=== PATIENT | male | born 1965 | race Caucasian/White ===

== ENCOUNTER 2025-04-26 15:06 | Emergency (ER) | payer SELFPAY ==
[2025-04-26 15:14] VITALS: BP 154/96; PULSE 58; RESP 18; TEMP 36.8; O2SAT 98
[2025-04-26] MEDS: lidocaine-epi 2% 20 mL INJ INJECTION (15:31)
--- NOTE | 2025-04-26 15:58 | ED_ITS ---
Documented by User: [email or web address] Salazar 04/26/25 16:01 HPI - Wound/Laceration General: Chief Complaint: Wound/Laceration Stated Complaint: Lt hand lac Time Seen by Provider: 04/26/25 15:19 Source: patient Mode of arrival: ambulatory Limitations: no limitations History of Present Illness: Patient is a 60-year-old male who presents to the emergency department for lacerating left hand after sliding a crossbow. States that the laceration is between his left thumb and index finger, and he has not gotten the bleeding stopped. He does not use blood thinner. Direct pressure applied at this time and noted to be soaking through gauze. No distal neurovascular symptoms reported. Pain minimal, he did take 600 mg ibuprofen prior to coming in. He notes that his tetanus is not up-to-date. Onset (ago): minute(s) Extremity Location: Left: hand Patient tetanus UTD: No Context: accidental Associated symptoms: Denies chills, fever(s), nausea or vomiting Treatments prior to arrival: bandage Related Data Previous Rx's ?Medication ?Instructions ?Recorded cephalexin 500 mg capsule 500 mg PO Q6H 5 days #20 cap s 04/26/25 Allergies Allergy/AdvReac Type Severity Reaction Status Date / Time No Known Allergies Allergy Verified 04/26/25 15:18 Review of Systems General: Reports: 10 or more systems reviewed and unremarkable except in HPI and below Const: Denies: fever(s) or chills Card: Denies: chest pain Resp: Denies: dyspnea GI: Denies: abdominal pain, nausea, vomiting or diarrhea Musc: Denies: extremity pain or joint pain Skin/Breast: Reports: new lesions (Laceration left hand); Denies: rash, skin pain or skin tenderness Neuro: Denies: headache(s) Physical Exam Const: COMMON NORMALS: no acute distress, average body habitus, patient oriented x3, no limitations, healthy appearing, alert and well nourished HENMT: COMMON NORMALS: normocephalic and atraumatic HEAD & SCALP: normocephalic and atraumatic Neck/C-Spine: COMMON NORMALS: full ROM, no lymphadenopathy, supple and no meningeal signs Extremity: COMMON NORMALS: full ROM and capillary refill normal Neuro: COMMON NORMALS: patient oriented x3, moves all extremities, no focal motor deficits and no sensory deficits noted SENSORIUM/ORIENTATION: Yes alert MENINGEAL SIGNS: Yes no meningeal signs OTHER: Normal neurovascular exam of the left hand Skin: COMMON NORMALS: turgor normal NARRATIVE SKIN EXAM: Actively bleeding flap laceration measuring approximately 5 cm to the dorsum of the left hand, between the index and thumb. This does extend into a skin tear. No obvious foreign body or contamination. GENERAL SKIN EXAM: turgor normal Procedures Laceration Laceration 1: Site: hand Side (If applicable): left Size (cm): 5 Description: flap, clean and other (Actively bleeding, associated with skin tear) Depth: simple, single layer Local Anesthetic: lidocaine 2% and with epi Amount of anesthesia used (mL): 8 Pre-repair: wound explored, irrigated extensively and deep structures intact Skin layer closed with: other (Prolene) Size (cm): 4-0 Number of sutures: 9 Technique: simple, interrupted and other (1 [id number] suture for ligation) Course Vital Signs: Vital signs: Vital Signs Temperature 98.2 F 04/26/25 15:14 Pulse Rate 58 L 04/26/25 15:14 Respiratory Rate 18 04/26/25 15:14 Blood Pressure 154/96 04/26/25 15:14 Pulse Oximetry 98 04/26/25 15:14 Oxygen Delivery Me thod Room Air 04/26/25 15:14 MDM - Wound/Laceration Medical Decision Making Patient presenting with actively bleeding laceration to left hand after injury when sliding in a crossbow. His tetanus is updated today. There is active bleeding at time of examination, offending artery is identified after irrigation and direct pressure, and a [id number] suture is placed to help this. Also was administered lidocaine with epinephrine. Regardless the bleeding is stopped, and the rest of the laceration is repaired, please see the procedure note. For the extent of this nature will start on prophylactic Keflex. There is no foreign body or contamination, neurovascular exam is intact on exam. Neurovascular exam also intact post procedure. He will be allowed discharge home with proper wound care discussed, he is dressed in sterile dressing. No radiology studies performed this visit Discharge Plan Discharge Patient Disposition: Home Clinical Impression: Laceration of hand, left Qualifiers: Encounter type: initial encounter Foreign body presence: without foreign body Qualified Code(s): S61.412A - Laceration without foreign body of left hand, initial encounter Condition: Stable Prescriptions: New cephalexin 500 mg capsule 500 mg PO Q6H 5 Days Qty: 20 0RF Discharge Orders: Discharge ED (Routine); Ordered 04/26/25 Ordered By: Hima Nagy Patient Instructions: Patient Portal & Sharan Instructions Activity Restrictions/Additional Instructions: Hand Laceration Discharge Wound Care Instructions: - Your left hand laceration was closed with nine sutures after bleeding was controlled. - Keep the wound clean and covered with an occlusive dressing (such as a bandage or gauze with ointment) to promote healing and reduce infection risk. - You may gently wash the area with clean tap water or saline after the first 24 hours. Avoid scrubbing. Pat dry and reapply a clean dressing. - Change the dressing daily or if it becomes wet or dirty. Do not apply topical antibiotics unless directed. - It is safe to get the wound wet after the first 24-48 hours. Suture Removal: - Sutures in the hand should be removed in 10-14 days to minimize scarring and reduce infection risk. Please schedule a follow-up appointment for suture removal within this timeframe. Tetanus Vaccination: - Your tetanus vaccination was updated today. No further action is needed unless you develop symptoms of tetanus (such as muscle stiffness or spasms). Antibiotics: - You will start cephalexin 500 mg by mouth four times daily for five days. Take the medication as prescribed and complete the full course, even if the wound looks healed. This is a precaution; most simple hand lacerations do not require antibiotics, but they may be used based on individual risk factors. Signs of Infection or Complications: - Watch for increased redness, swelling, warmth, pus, worsening pain, fever, or red streaks near the wound. If any of these occur, contact your healthcare provider promptly. Activity: - Limit use of the affected hand until sutures are removed and the wound is healed. Avoid heavy lifting or activities that may stress the wound. Follow-Up: - Return for suture removal in 10-14 days or sooner if you notice signs of infection or have concerns about healing. If you have any questions or concerns, please contact your healthcare provider. Print Language: Italian Coding Level of Care Code ED Payment Manager for [facility] Fwd Documented by User: Clifford Barth DO 04/26/25 17:09 HPI - Wound/Laceration General: Chief Complaint: Wound/Laceration Stated Complaint: Lt hand lac Time Seen by Provider: 04/26/25 15:19 Related Data Previous Rx's ?Medication ?Instructions ?Recorded cephalexin 500 mg capsule 500 mg PO Q6H 5 days #20 cap s 04/26/25 Allergies Allergy/AdvReac Type Severity Reaction Status Date / Time No Known Allergies Allergy Verified 04/26/25 15:18 Course Vital Signs: Vital signs: Vital Signs Temperature 98.2 F 04/26/25 15:14 Pulse Rate 58 L 04/26/25 15:14 Respiratory Rate 18 04/26/25 15:14 Blood Pressure 154/96 04/26/25 15:14 Pulse Oximetry 98 04/26/25 15:14 Oxygen Delivery Me thod Room Air 04/26/25 15:14 MDM - Wound/Laceration Medical Decision Making Patient presenting with actively bleeding laceration to left hand after injury when sliding in a crossbow. His tetanus is updated today. There is active bleeding at time of examination, offending artery is identified after irrigation and direct pressure, and a [id number] suture is placed to help this. Also was administered lidocaine with epinephrine. Regardless the bleeding is stopped, and the rest of the laceration is repaired, please see the procedure note. For the extent of this nature will start on prophylactic Keflex. There is no foreign body or contamination, neurovascular exam is intact on exam. Neurovascular exam also intact post procedure. He will be allowed discharge home with proper wound care discussed, he is dressed in sterile dressing. Chart reviewed and patient discussed with midlevel. Agree with assessment and plan. Discharge Plan Discharge Patient Disposition: Home Clinical Impression: Laceration of hand, left Qualifiers: Encounter type: initial encounter Foreign body presence: without foreign body Qualified Code(s): S61.412A - Laceration without foreign body of left hand, initial encounter Condition: Stable Prescriptions: New cephalexin 500 mg capsule 500 mg PO Q6H 5 Days Qty: 20 0RF Discharge Orders: Discharge ED (Routine); Ordered 04/26/25 Ordered By: Hima Nagy Patient Instructions: Patient Portal & Sharan Instructions Activity Restrictions/Additional Instructions: Hand Laceration Discharge Wound Care Instructions: - Your left hand laceration was closed with nine sutures after bleeding was controlled. - Keep the wound clean and covered with an occlusive dressing (such as a bandage or gauze with ointment) to promote healing and reduce infection risk. - You may gently wash the area with clean tap water or saline after the first 24 hours. Avoid scrubbing. Pat dry and reapply a clean dressing. - Change the dressing daily or if it becomes wet or dirty. Do not apply topical antibiotics unless directed. - It is safe to get the wound wet after the first 24-48 hours. Suture Removal: - Sutures in the hand should be removed in 10-14 days to minimize scarring and reduce infection risk. Please schedule a follow-up appointment for suture removal within this timeframe. Tetanus Vaccination: - Your tetanus vaccination was updated today. No further action is needed unless you develop symptoms of tetanus (such as muscle stiffness or spasms). Antibiotics: - You will start cephalexin 500 mg by mouth four times daily for five days. Take the medication as prescribed and complete the full course, even if the wound looks healed. This is a precaution; most simple hand lacerations do not require antibiotics, but they may be used based on individual risk factors. Signs of Infection or Complications: - Watch for increased redness, swelling, warmth, pus, worsening pain, fever, or red streaks near the wound. If any of these occur, contact your healthcare provider promptly. Activity: - Limit use of the affected hand until sutures are removed and the wound is healed. Avoid heavy lifting or activities that may stress the wound. Follow-Up: - Return for suture removal in 10-14 days or sooner if you notice signs of infection or have concerns about healing. If you have any questions or concerns, please contact your healthcare provider. Print Language: Italian Coding Level of Care Code ED Payment Manager for Maryanne Fernandes
[2025-04-26] MEDS: tetanus-dipt-pertussis 0.5 mL SDV IM (16:02)
== END 2025-04-26 16:08 | disposition home or self-care (01) ==
PROVIDERS: Emergency Provider Physician Assistant
DX: S61.412A Laceration without foreign body of left hand, initial encounter (principal); X58.XXXA Exposure to other specified factors, initial encounter
CPT/HCPCS: 12002; 90471; 90715; 99283; J9999